=== PATIENT | male | born 1965 | race African-American/Black ===

== ENCOUNTER 2018-02-03 17:24 | Emergency (ER) | payer MEDICAID ==
[~2018-02-03] VITALS: Ht 167.6 cm; Wt 85.0 kg
[2018-02-03 19:49] LABS: BASOPHILS % 0.6 % (0.0-2.0); HEMATOCRIT. 46.5 % (42.0-52.0); HEMOGLOBIN. 16.1 g/dL (14.0-18.0); LYMPHOCYTES % 10.2 % (20.0-50.0); MEAN CORPUSCULAR HEMOGLOBIN 27.8 pg (28.0-32.0); MEAN CORPUSCULAR VOLUME 80.5 fL (80.0-94.0); MEAN PLATELET VOLUME 8.8 fl (7.4-10.4); MONOCYTES % 2.2 % (2.0-8.0); PLATELET 192 x1000/uL (130-400); RED BLOOD CELL COUNT 5.77 mill/uL (4.7-6.1); RED CELL DISTRIBUTION WIDTH 13.5 % (11.6-14.6)
[2018-02-03 19:54] LABS: INR 1.1; PARTIAL THROMBOPLASTIN TIME 25.4 sec (23.4-31.0); PROTHROMBIN TIME 11.2 sec (9.4-11.6)
[2018-02-03 19:56] LABS: CHLORIDE 100 mEq/L (98-107)
[2018-02-03 20:00] LABS: ETHANOL BLOOD < 10 mg/dL
[2018-02-03] MEDS ORDERED: TRAMADOL 50MG TABLET PO ONE (22:00)
[2018-02-04 00:19] VITALS: BP 154/94
== END 2018-02-04 00:57 | disposition home or self-care (01) ==
LOC: ER 21:39
DX: K52.9 Noninfective gastroenteritis and colitis, unspecified (principal)
CPT/HCPCS: 36415; 71045; 80053; 83690; 83880; 84484; 85025; 85610; 85730; 93005; 99285; G0482